=== PATIENT | male | born 1965 | race American Indian/Alaskan Native ===

== ENCOUNTER 2021-10-12 17:37 | Emergency (ER) | payer MEDICAID ==
[2021-10-12] MEDS ORDERED: Take Home: Amoxicillin/Clavulanate K 875-125 MG Tab, 2 Tab Pack PO ONE (18:02)
[2021-10-12] MEDS ORDERED: Take Home: Acetaminophen/Codeine 300 MG/30 MG, 5 Tab Pack PO ONE (18:02)
[2021-10-12] MEDS ORDERED: Ibuprofen 200 MG Tab PO ONE (18:04)
== END 2021-10-12 18:24 | disposition home or self-care (01) ==
LOC: VM.ED 17:37
DX: K04.7 Periapical abscess without sinus (principal); I10 Essential (primary) hypertension
CPT/HCPCS: 99282; 99283; A9270-GY